=== PATIENT | male | born 1935 | race Caucasian/White ===

== ENCOUNTER → 2017-02-12 | Outpatient (CLI) | payer OTHER ==
[~2017-02-12] MED LIST: ADULT LOW DOSE81 MG PO; APAP650 PO; ATORVASTATIN CA10 MG PO; COUMADIN 2 MG TA2 M1 PO; COUMADIN6 MG PO; FISH OIL 1,001000 M1 PO; GLUCOPHAGE XR750 MG PO; HYDROCODON-ACE1 EAC7 PO; LISINOPRIL5 MG PO; NITROGLYCERIN0.4 MG SL; PENICILLIN VK500 MG PO; PLAVIX 75 MG TA75 MG PO; PRILOSEC 10MG C10 MG PO; PROTONIX40 M2 PO; SAW PALMETTO C1 EACH PO; SIMVASTATIN40 MG PO; ZOCOR 20 MG TAB20 M1 PO
== END ==
LOC: MRI 06:49
DX: M16.11 Unilateral primary osteoarthritis, right hip (principal); M48.06 Spinal stenosis, lumbar region

== ENCOUNTER 2018-10-20 13:12 | Inpatient (IN) | payer OTHER ==
[~2018-10-20] VITALS: Ht 182.9 cm; Wt 112.3 kg
[2018-10-20 13:15] VITALS: BP 167/98
[2018-10-20 13:51] LABS: HEMATOCRIT 37.9 % (42.0-52.0); HEMOGLOBIN 12.8 gm/dL (14.0-18.0); MCH 33.1 pg (26.0-34.0); MCHC 33.6 g/dL (28.0-37.0); MCV 98.4 fL (80.0-100.0); RBC 3.85 mil/uL (4.50-6.00); RDW 14.7 % (10.5-14.5); WBC 9.3 thou/uL (4.0-11.0)
[2018-10-20] MEDS ORDERED: ASPIRIN325 PO (13:54)
[2018-10-20 14:04] LABS: APTT 40.8 Seconds (24.5-32.8); PROTIME 42.7 Seconds (9.3-11.4)
[2018-10-20 14:06] LABS: INR 4.1
[2018-10-20 14:07] LABS: CALCIUM 9.4 mg/dL (8.5-10.1); POTASSIUM 4.6 mmol/L (3.5-5.1)
[2018-10-20 14:13] LABS: TOTAL BILIRUBIN 0.5 mg/dL (<0.1-1.0); TOTAL PROTEIN 7.3 g/dL (6.4-8.2)
[2018-10-20 14:17] LABS: ABSOLUTE NEUTROPHILS 8.1 thou/uL (1.4-8.2)
[2018-10-20 14:18] LABS: LARGE PLATELETS FEW; PLATELET COUNT 152 thou/uL (150-400)
[2018-10-20] MEDS ORDERED: LISINOPRIL2.5 MG PO (15:18)
[2018-10-20 15:49] LABS: URINE BILIRUBIN NEGATIVE (Negative); URINE BLOOD NEGATIVE (Negative); URINE CLARITY CLEAR; URINE COLOR YELLOW; URINE GLUCOSE-RANDOM* NEGATIVE (Negative); URINE KETONES NEGATIVE (Negative); URINE LEUKOCYTES NEGATIVE (Negative); URINE NITRITE NEGATIVE (Negative); URINE PROTEIN (DIPSTICK) NEGATIVE (Negative); URINE UROBILINOGEN 0.2 E.U./dl (0.2-1.0)
[2018-10-20 15:57] LABS: AMP/METHAMP Negative (Negative); BARBITURATES Negative (Negative); BENZODIAZEPINES Negative (Negative); COCAINE Negative (Negative); METHADONE Negative (Negative); OPIATES Negative (Negative); PCP Negative (Negative)
[2018-10-20 17:41] VITALS: BP 144/78; BP 148/72; BP 152/78
[2018-10-20 17:47] VITALS: BP 166/89
[2018-10-20 19:08] VITALS: BP 154/77
[2018-10-20 19:16] VITALS: BP 152/83
[2018-10-21] VITALS (8 sets, daily range): BP systolic 125–163; BP diastolic 58–104
--- NOTE | 2018-10-21 04:11 | NUR ---
ASSESSMENT: PT REMAIN ALERT AND ORIENT TIMES FOUR. VSS, AFEBRILE. C/O BACK PAIN, PRN PAIN MEDICATION GIVEN. PT IS RESTING IN BED, MOELLER PATENT. NO BM THUS FAR. CONSULT FOR Skye DEVRIES PENDING. SLOW PROGRESS TOWARDS DC GOALS, WILL CONTINUE TO MONITOR.
--- NOTE | 2018-10-21 04:27 | NUR ---
NOTEWORTHY: PT STATE THAT HE SOMETIMES "BLACKS OUT" AFTER FEELING DIZZY. HE THINKS THAT HE COULD HAVE HAD A "DIZZY SPELL", FELL AND HURT HIS BACK.
[2018-10-21 05:08] LABS: HEMATOCRIT 33.7 % (42.0-52.0); HEMOGLOBIN 11.2 gm/dL (14.0-18.0); MCH 32.9 pg (26.0-34.0); MCHC 33.4 g/dL (28.0-37.0); MCV 98.5 fL (80.0-100.0); RBC 3.42 mil/uL (4.50-6.00); RDW 14.7 % (10.5-14.5)
[2018-10-21 05:22] LABS: INR 3.6; PROTIME 37.2 Seconds (9.3-11.4)
[2018-10-21 05:25] LABS: CALCIUM 8.5 mg/dL (8.5-10.1); CREATININE 0.9 mg/dL (0.7-1.3); MAGNESIUM 1.8 mg/dL (1.8-2.4); POTASSIUM 3.9 mmol/L (3.5-5.1)
--- NOTE | 2018-10-21 09:26 | NUR ---
ASSESMENT COMPLETED. VSS. A/O. PAIN MANAGED BY MEDS ORDERED. NO NOTED SOA. NO NV. FOELY TO DD. PT VERBALIZED HAVING "DIZZING SPELLS" AND "BLACKING OUT" PT STATING IT'S PROBABLY THE REASON HE FELL. DR. NGUYEN NOTIFIED. ORDERS TO TRANSFER TO [facility]. PT RESTING IN BED AT THIS TIME. NO CONCERNS VOICED. WILL CONT. TO MONITOR.
--- NOTE | 2018-10-21 10:39 | NUR ---
PT TRANSFERRED TO 4W 454 IN STABEL CONDITION. SON AT BEDSIDE.
--- NOTE | 2018-10-21 19:16 | NUR ---
ASSUMED CARE OF PT THIS AFTERNOON. PT STABLE THROUGHOUT SHIFT, WENT FOR MRI AND TOLERATED WELL. C/O PAIN, TREATED WITH MEDICATION. FAMILY AT BEDSIDE. PT RESTING COMFORTABLY.
--- NOTE | 2018-10-22 03:07 | NUR ---
PT SLEPT MOST OF THE NIGHT PT NPO SINCE MIDNIGHT PT DID NOT COMPLAIN OF ANY PAIN NO ISSUES OVERNIGHT.
[2018-10-22 04:47] VITALS: BP 147/87
[2018-10-22 05:20] LABS: HEMATOCRIT 33.2 % (42.0-52.0); HEMOGLOBIN 11.2 gm/dL (14.0-18.0); MCH 33.5 pg (26.0-34.0); MCHC 33.9 g/dL (28.0-37.0); MCV 98.7 fL (80.0-100.0); RBC 3.36 mil/uL (4.50-6.00); RDW 14.5 % (10.5-14.5); WBC 6.8 thou/uL (4.0-11.0)
[2018-10-22 05:26] LABS: PROTIME 18.5 Seconds (9.3-11.4)
[2018-10-22 05:36] LABS: INR 1.8
[2018-10-22 08:07] VITALS: BP 130/80; BP 150/97; BP 153/97
[2018-10-22 10:51] LABS: INR 1.6; PROTIME 16.5 Seconds (9.3-11.4)
--- NOTE | 2018-10-22 13:01 | NUR ---
TOWARDS POC PT A/O X4, VSS, AFEBRILE. NO NV. 1 UNIT FFP GIVEN FOR PRE SURGERY INTERVENTION. INR 1.6. PT REMAINED NPO. WILL FF UP FOR SURGERY SCHEDULE. WILL CONTINUE TO MONITOR.
--- NOTE | 2018-10-22 14:04 | NUR ---
PT ADMITTED RELATED TO T12 COMPRESSION FX. CM REVIEWED CHART AND SPOKE WITH CARE TEAM. CM MET WITH PT AT BEDSIDE THIS DAY. PT IS A&O X4. MC ROLE INTRODUCED. PT INDICATED HE LIVES ALONE IN A HOUSE WITH 4 STEPS TO ENTER THROUGH THE FRONT AND 13 TO ENTER THROUGH THE BACK. PT INDICATED HE HAD USED A CANE AND A 4WW TO ASSIST WITH MOBILITY PROFESSIONAL HOUSING CONSULTANT. PT INDICATED HE HADN'T HAD HOME O2 PROFESSIONAL HOUSING CONSULTANT. PT INDICATED HE HAD USED [facility] IN THE PAST AND THAT HE WOULD LIKE TO USE THEM AGAIN UPON DC IF RECOMMENDED. PT INDICATED HE ISN'T CERTAIN WHAT HIS NEEDS WILL BE YET UPON DC. PT IS TO HAVE A KYPHOPLASTY THIS DAY. CM TO FOLLOW INDICATED WITH DC PLANNING.
[2018-10-22 15:00] VITALS: BP 175/98
[2018-10-22 20:12] VITALS: BP 143/74
--- NOTE | 2018-10-23 01:41 | NUR ---
PT SLEPT MOST OF THE NIGHT PT GIVEN TWO NORCO PILLS FOR PAIN PT USED CALL LIGHT EFFECTIVELY NO ISSUES OVERNIGHT.
[2018-10-23 03:19] VITALS: BP 140/86
[2018-10-23 07:13] VITALS: BP 117/66
[2018-10-23 15:10] VITALS: BP 127/67
--- NOTE | 2018-10-23 16:52 | NUR ---
ALERT X4, PAIN MANAGED WITH MEDICATIONS. VSS, ABLE TO REPOSITION SELF. 500CC FROM MOELLER. INDEPENDENT WITH MEALS. SURGERY SCHEDULED FOR THURSDAY. ROUNDED BY DR MENDEZ WITH ORDERS FOR MOM - NO BM AT THIS TIME. FALL PRECAUTION IN PLACE. CALLS APPROPRIATLEY.
[2018-10-23 19:45] VITALS: BP 173/91
[2018-10-24 03:32] VITALS: BP 146/67
--- NOTE | 2018-10-24 04:30 | NUR ---
Pt. rested quietly at intervals during the night when checked on during frequent rounds. He c/o back pain and was given po pain med (see emar) with relief. Bed alarm is on.
[2018-10-24 08:00] VITALS: BP 171/89
[2018-10-24 15:00] VITALS: BP 172/86
--- NOTE | 2018-10-24 16:21 | NUR ---
PT A&OX4, VSS, GENERALIZED PAIN AT AN 8 PER PT AND BEING MANAGED WITH NORCO. PT NPO AT MIDNIGHT, AWAITING KYPHOPLASTY THURSDAY MORNING. FALL PRECAUTIONS IN PLACE, WILL CONTINUE TO MONITOR.
[2018-10-24 20:26] VITALS: BP 151/86
[2018-10-25] VITALS (7 sets, daily range): BP systolic 124–179; BP diastolic 57–95
--- NOTE | 2018-10-25 07:33 | NUR ---
PATIENT IS ALERT BUT EASILY CONFUSED. PT WAS ABLE TO SLEEP PART OF THE SHIFT. 02 VIA NC AND MOELLER CATHETER CONTINUED. POSSIBLE SURGERY IN THE AM. PATIENT IS PROGRESSING TOWARDS DC GOALS.
[2018-10-25 09:41] LABS: HEMOGLOBIN 11.4 gm/dL (14.0-18.0); MCHC 33.7 g/dL (28.0-37.0); MCV 98.1 fL (80.0-100.0); RBC 3.46 mil/uL (4.50-6.00); RDW 14.1 % (10.5-14.5); WBC 5.3 thou/uL (4.0-11.0)
[2018-10-25 09:49] LABS: CALCIUM 8.4 mg/dL (8.5-10.1); CREATININE 0.6 mg/dL (0.7-1.3); POTASSIUM 4.1 mmol/L (3.5-5.1)
[2018-10-25 09:53] LABS: INR 1.2; PROTIME 12.5 Seconds (9.3-11.4)
--- NOTE | 2018-10-25 17:07 | NUR ---
PT UNDERWENT KYPHOPLAXTY TODAY. AWAITING PT OT EVALS TO SETERMINE DC NEEDS. CM TO FOLLOW INDICATED WITH DC PLANNING.
--- NOTE | 2018-10-25 17:46 | NUR ---
ASSUMED CARE 0700. KYPHOPLASTY THIS MORNING. PAIN MANAGED WITH MEDICATIONS, VSS, NO NEED TO TREAT BLOOD SUGARS, AFIB ON TELE. PT TO WORK WITH PATIENT TOMORROW. FALL PRECAUTIONS REMAIN IN PLACE. CALL LIGHT IN REACH.
[2018-10-26 05:20] VITALS: BP 153/100
[2018-10-26 07:12] VITALS: BP 151/75
--- NOTE | 2018-10-26 07:42 | NUR ---
PT IS AO X 2 THIS SHIFT. O2 VIA NC CONTINUED WITH CONTINUOUS PULSE OX. PT GETS COFUSED AT NIGHTTIME. POST OP SITE HAS INTACT DRESSING. NO OTHER QUESTIONS AND CONCERNS AT THIS TIME. PT IS PROGRESSIG TOWARDS DC GOALS.
[2018-10-26] MEDS ORDERED: BACLOFEN 10MG T10 MG PO (13:18)
[2018-10-26] MEDS ORDERED: ACETAMINOPHEN325 M1 PO (13:18)
[2018-10-26] MEDS ORDERED: HYDROCODON-ACE1 EAC7 PO (13:18)
[2018-10-26] MEDS ORDERED: B-12500 MCG PO (13:18)
[2018-10-26] MEDS ORDERED: MOBIC7.5 M1 PO (13:18)
[2018-10-26] MEDS ORDERED: COLACE 100 MG100 MG PO (13:18)
--- NOTE | 2018-10-26 14:53 | NUR ---
CM MET WITH PT AND SON LUDIVINA AT BEDSIDE THIS DAY. CM INDICATED THAT CARE TEAM WERE RECOMMENDING POST ACUTE CARE STAY. CM PROVIDED THEM SNF LIST TO REVIEW. CM FOLLOWING REGARDING DC PLANNING.
[2018-10-26 15:18] VITALS: BP 145/67
--- NOTE | 2018-10-26 16:53 | NUR ---
ASSUMED CARE 0700. ALERT X3, DENIES PAIN. VSS, UP WITH PT/OT GAIT BELT AND WALKER TO RECLYNER THIS MORNING. AT THIS TIME PT IS IN BED. CONTINUES ON 02 AND CONTINIOUS PULSE OX MONITOR. PLANS TO DC TO REHAB ONCE INSURANCE IS AUTHORIZED. FULL FALL PRECAUTIONS IN PLACE. CALLS FOR ASSISTANCE. SUNNI CORTES, LARGE BM TODAY
[2018-10-26 19:23] VITALS: BP 166/89
[2018-10-26 23:42] VITALS: BP 156/78
[2018-10-27 03:01] VITALS: BP 178/86
[2018-10-27 07:15] VITALS: BP 146/68
--- NOTE | 2018-10-27 08:20 | NUR ---
PT A0X3 THIID SHIFT. MOELLER WAS DISCONTINUED AND PT VOIDED. PT SLEPT PART OF THE NIGHT. PT HAD NO QUESTIONS OR CONCERNS. WILL CONTIMUE TO MONITOR. PT PROGRESSING TOWARDS DC GOALS.
--- NOTE | 2018-10-27 12:15 | NUR ---
DISCHARGE PLANNING. PATIENT IS READY FOR DISCHARGE TODAY. POST ACUTE CARE RECOMMENDED. REFERRAL FAXED TO [facility] PER PATIENT REQUEST FOR POST ACUTE CARE NEEDS. CALL PLACED TO KAREN TO NOTIFY OF REFERRAL AND PATIENTS DISCHARGE NEEDS. KAREN AWARE THAT PATIENT IS ALSO INTERESTED IN [facility]. KAREN TO REVIEW CLINICALS AND NOTIFY OF ACCEPTANCE PRIOR TO SUBMITTING FOR INSURANCE AUTH. REFERRAL FAXED TO [facility], PER PATIENT REQUEST FOR POST ACUTE CARE NEEDS. CALL PLACED TO DEBORAH TO NOTIFY. LEILANI VILLANUEVA, [facility]IA[facility], TO MEET WITH PATIENT TODAY AT BEDSIDE. DEBORAH AWARE THAT PATIENT IS ALSO INTERESTED IN [facility] AND WILL REVIEW PATIENT CLINICAL INFORMATION AND NOTIFY CM PRIOR TO SUBMITTING FOR INSURANCE AUTH. UNIT CM/SW AWARE. FOLLOWING TO ASSIST.
--- NOTE | 2018-10-27 14:21 | NUR ---
CM FOLLOWED UP WITH PT'S SON LUDIVINA THIS AM AND HE ASKED THAT REFERRALS BE SENT TO [facility] AND [facility] FOR REVIEW FOR POSSIBLE ADMISSION. [facility] INDICATED THEY WOULD BE ABLE TO ACCEPT PT MEDICALLY AND THAT THEY WOULD SUBMIT FOR AUTH. MAGGIE TO FOLLOW INDICATED WITH DC PLANNING.
[2018-10-27 15:30] VITALS: BP 140/77
[2018-10-27 19:20] VITALS: BP 151/62
--- NOTE | 2018-10-27 19:41 | NUR ---
ASSUMED CARE 0700. PROGRESSING TOWARDS GOALS. AWAITING PLACEMENT/INSURANCE AUTHORIZATION. LIKELY TO DC TOMORROW.REMAINS IN FALL PRECATION.
--- NOTE | 2018-10-28 05:13 | NUR ---
PT AOX4 THIS SHIFT WHICH IS AN IMPROVEMENT FROM PREVIOUS NIGHT SHIFTS. NO S/S OF ACUTE DISTRESS THIS SHIFT. PT CALLS FOR HELP NEEDED. NO OTHER QUESTIONS OR CONCERNS AT THIS TIME. WILL CONTINUE TO MONITOR.
[2018-10-28 05:27] VITALS: BP 136/70
[2018-10-28 07:35] VITALS: BP 141/84
--- NOTE | 2018-10-28 09:25 | NUR ---
Nutrition: Pt admitted for T12 compression fx s/p vertebroplasty. Seen for LOS. Hx of DM. Pt states appetite is not good this morning with nausea. Intake 07/02-06/30. No new wt since admission. Admission wt 247 lbs, UBW 230 lbs. Discharge orders on 10/26, awaiting insurance authorization for SNF. Per nsg notes, will likely D/C today. Sarcopenia noted, however director of outreach strength WNL. BG controlled. Will reassess if D/C not within next few days.
[2018-10-28 09:34] VITALS: BP 141/84
--- NOTE | 2018-10-28 09:50 | NUR ---
PT A&OX1, AMBULATES WITH STAND BY ASSIST AND 3 WHEEL WALKER. PT IS CONT. OF BOWEL AND BLADDER. PT IS VERY PLEASANT AND TEARFULL AT TIMES. FORGETS OWN LIMITATIONS, WILL CONT TO MONITOR SAFETY CHAIR AND BED ALARMS ON AT ALL TIMES.
--- NOTE | 2018-10-28 10:06 | NUR ---
PT A&OX4, IV INTACT IN L HAND, AMBULATES WITH ASSIST AND WALKER. DENIES ANY PAIN AT THIS TIME. WILL CONT POC.
--- NOTE | 2018-10-28 16:17 | NUR ---
DC ORDERS RECEIVED. IV REMOVED FROM L HAND, REPORT CALLED TO DEVON AT [facility]. W/C SHELLIE PICKED UP PT TO TRANSFER.
== END 2018-10-28 16:05 | DRG 516 ==
LOC: ER 13:12 → 4W 15:08 → 4E 15:08 → EROBS 15:08 → 4E 18:54 → 4W 10-21 10:34
PROVIDERS: Emergency Medicine; Nurse Practitioner Family; ADMIT Internal Medicine
PROC: 0PS43ZZ Reposition Thoracic Vertebra, Percutaneous Approach (ICD-10-PCS; principal; 2018-10-25)
PROC: 0PU43JZ Supplement Thoracic Vertebra with Synthetic Substitute, Percutaneous Approach (ICD-10-PCS; principal; 2018-10-25)
DX: S22.080A Wedge compression fracture of T11-T12 vertebra, initial encounter for closed fracture (principal); D68.9 Coagulation defect, unspecified; M54.9 Dorsalgia, unspecified; I10 Essential (primary) hypertension; I25.10 Atherosclerotic heart disease of native coronary artery without angina pectoris; E11.9 Type 2 diabetes mellitus without complications; M81.0 Age-related osteoporosis without current pathological fracture; Z96.652 Presence of left artificial knee joint; E53.8 Deficiency of other specified B group vitamins; Z60.2 Problems related to living alone; I48.2 Chronic atrial fibrillation; K59.03 Drug induced constipation; T50.905A Adverse effect of unspecified drugs, medicaments and biological substances, initial encounter; Y92.9 Unspecified place or not applicable; Z91.040 Latex allergy status; Z95.5 Presence of coronary angioplasty implant and graft; Z82.2 Family history of deafness and hearing loss; Z82.49 Family history of ischemic heart disease and other diseases of the circulatory system; Z90.49 Acquired absence of other specified parts of digestive tract; Z79.01 Long term (current) use of anticoagulants; W18.39XA Other fall on same level, initial encounter; Y93.89 Activity, other specified; Y92.89 Other specified places as the place of occurrence of the external cause; Y99.8 Other external cause status
CPT/HCPCS: 10040; 10045; 10084

== ENCOUNTER 2021-05-27 11:39 | Inpatient (IN) | payer OTHER ==
[~2021-05-27] VITALS: Ht 182.9 cm; Wt 91.9 kg
[~2021-05-27 11:39] MED LIST changes: +ACETAMINOPHEN325 M1 PO; +ASPIRIN325 PO; +B-12500 MCG PO; +BACLOFEN 10MG T10 MG PO; +COLACE 100 MG100 MG PO; +LISINOPRIL2.5 MG PO; +MOBIC7.5 M1 PO
[2021-05-27 11:43] VITALS: BP 172/89
[2021-05-27] MEDS ORDERED: PROTONIX40 M4 PO (11:52)
[2021-05-27] MEDS ORDERED: XARELTO20 MG PO (11:55)
[2021-05-27] MEDS ORDERED: NITROSTAT0.4 M1 SUBLING (11:56)
[2021-05-27 14:31] LABS: ABSOLUTE NEUTROPHILS 4.6 thou/uL (1.4-8.2); BASOPHILS 1.2 % (0.0-2.0); EOSINOPHILS 2.3 % (0.0-3.0); HEMATOCRIT 38.9 % (42.0-52.0); HEMOGLOBIN 12.8 gm/dL (14.0-18.0); LYMPHOCYTES 16.8 % (24.0-44.0); MCH 32.1 pg (26.0-34.0); MCV 97.2 fL (80.0-100.0); MONOCYTES 9.5 % (1.0-8.0); PLATELET COUNT 190 thou/uL (150-400); POLYS 70.2 % (36.0-66.0); RDW 14.9 % (10.5-14.5); WBC 6.6 thou/uL (4.0-11.0)
--- NOTE | 2021-05-27 14:42 | NUR ---
PT LEAVES DEPT FOR RADIOLOGY.
[2021-05-27 14:44] LABS: APTT 41.4 Seconds (24.5-32.8); INR 1.51; PROTIME 16.1 Seconds (10.5-12.1)
[2021-05-27 14:46] LABS: CALCIUM 9.2 mg/dL (8.5-10.1); POTASSIUM 4.2 mmol/L (3.5-5.1)
[2021-05-27 14:55] LABS: ALBUMIN 3.3 g/dL (3.4-5.0); MAGNESIUM 2.1 mg/dL (1.8-2.4); TOTAL BILIRUBIN 0.7 mg/dL (0.2-1.0); TOTAL PROTEIN 7.7 g/dL (6.4-8.2)
[2021-05-27 23:10] VITALS: BP 152/80
[2021-05-27 23:26] VITALS: BP 150/79
--- NOTE | 2021-05-28 01:04 | NUR ---
PT ARRIVED TO FROM ED AT APPROXIMATELY 2315, TRANSPORTED VIA CART BY ED STAFF. PT IS A&OX4 AND ABLE TO COMMUNICATE WANTS AND NEEDS TO STAFF. ADMISSION ASSESSMENTS COMPLETED PER PROTOCOL. PT IS ON ROOM AIR, VSS STABLE UPON ARRIVAL TO . SILICONE CATHETER IN PLACE TO DD DUE TO NOTED ALLERGY TO LATEX. PT IS PLEASANT AND COOPERATIVE. ADMITTED TO [facility]/TELE. TELE MONIOR IN PLACE, A-FIB NOTED, RATE 60'S-70'S. WILL CONTINUE TO OBSERVE FOR CHANGES.
[2021-05-28 05:29] VITALS: BP 123/52
[2021-05-28 05:53] LABS: HEMATOCRIT 34.8 % (42.0-52.0); HEMOGLOBIN 11.5 gm/dL (14.0-18.0); MCH 32.2 pg (26.0-34.0); MCV 97.5 fL (80.0-100.0); RBC 3.57 mil/uL (4.50-6.00); RDW 15.2 % (10.5-14.5); WBC 5.1 thou/uL (4.0-11.0)
[2021-05-28 06:06] LABS: CALCIUM 8.7 mg/dL (8.5-10.1); CREATININE 0.9 mg/dL (0.7-1.3); POTASSIUM 4.3 mmol/L (3.5-5.1)
--- NOTE | 2021-05-28 07:17 | EKG ---
[address] [address] ELECTROCARDIOGRAM REPORT Name: KENDRICKMARGARITO V Room #: 447-P ADM IN M.R.#: [id number] Admission: 05/27/21 Attend Phys: Nnamdi Crespo MD Discharge: Date of : 31 Report #: [id number] [facility] ED Test Date: 2021-05-27 Test Time: 14:56:33 Pat Name: MARGARITO MARKS Department: Room: [facility] Gender: M Cornice Upholsterer: DG : 1935 Requested By: Reshma Penny Order Number: [id number] : Solomon Pham Measurements Intervals [place] Rate: 81 P: OR: QRS: 2 QRSD: 96 T: 27 QT: 409 QTc: 475 Interpretive Statements Atrial fibrillation Compared to ECG 01/15/2011 07:42:15 Myocardial infarct finding no longer present Electronically Signed On 05-28-2021 7:17:09 MILK PROCESSING WORKER by Solomon Pham [email or web address] <ELECTRONICALLY SIGNED> By: Solomon Pham MD, [facility] 05/28/21 0717 1456 1456 Solomon Pham MD, FACC /EPI
[2021-05-28 07:46] VITALS: BP 134/73
[2021-05-28 16:00] VITALS: BP 124/80
--- NOTE | 2021-05-28 16:46 | NUR ---
85-year-old male, came to the ED with complaints of difficulty walking, low back pain, neck pain, and had recently experienced an unwitnessed fall approximately 3 days ago. He reports that upon standing up quickly he turned at the same time, lost his balance, and fell. He reports that he did hit the counter as he fell .history of atrial fibrillation, diabetes type 2, hypertension, T12 compression fracture, osteoporosis, falls, and coronary artery disease. On Xarelto for his atrial fibrillation. MAGGIE visited with Abel at bedside before breakfast. A & o x 3 with some forgetfulness and he can make his needs know. Intro to maggie and romulo. HH and rehab. He reported, been to [facility] rehab in the past and had [facility] in the past. Has a cane. His daughter in law and him have a system for medication manage at home and he will not use pill box. tries to drive. Had falls at home. Has 3 sons. Lost his and a daughter not that long ago and still grieving per Abel. Active listening and support during visit. Education on skilled rehab and he was agreeable to have referral sent to [facility]. Maggie spoke with his son jaxon via phone call # [phone] and agrees with rehab, someone should ask him what he thinks he should get out of rehab. Will cont. following as needed, will need insurance auth for skilled rehab.
--- NOTE | 2021-05-28 17:48 | NUR ---
A/O X4. DENIES PAIN. ON BED REST. WILL KEEP MONITOR
[2021-05-28 20:53] VITALS: BP 141/70
--- NOTE | 2021-05-29 04:20 | NUR ---
PT IS A/O X4 AND IS ON BEDREST. ROOM AIR. VSS AFEBRILE. DENIES C/O PAIN OR DISCOMFORT. CALL LIGHT IS WITHIN REACH. FALL PRECAUTIONS IMPLEMENTED.
[2021-05-29 07:47] VITALS: BP 137/70
[2021-05-29 11:38] VITALS: BP 133/68
--- NOTE | 2021-05-29 12:28 | NUR ---
A/O X 4. ROOM AIR. BEDREST. LEFT AC IV SALINE LOCKED. AFIB ON TELE. MOELLER ABRAN URINE. LEFT FACE BRUISE AND SWOLLEN. BACK PAIN. PRN PAIN MED GIVEN. LIDOCAINE PATCH ON BACK
--- NOTE | 2021-05-29 14:02 | 2DMMODE ---
[facility] [place] [address] 2 D/M-MODE ECHOCARDIOGRAM Name: MARGARITO MARKS V Room #: 447-P ADM IN M.R.#: [id number] Admission: 05/27/21 Attend Phys: Nnamdi Crespo MD Discharge: Date of : 31 Report #: [id number] THIS REPORT FOR: cc: José Miguel Rogers MD, Eric K. MD Park, Jin S. MD ~ APPROVED REPORT Study performed: 05/29/2021 09:56:31 EXAM: Comprehensive 2D, Doppler, and color-flow Echocardiogram Patient Location: Bedside Room #: [facility] Status: routine BSA: 2.10 HR: 55 bpm BP: 137/70 mmHg Rhythm: Atrial Fibrillation Other Information Study Quality: Technically Difficult Technically limited study due to Fractured back, inability to position patient. Indications Diabetes Atrial Fibrillation CAD Syncope 2D Dimensions IVSd: 10.03 (7-11mm) LVOT Diam: 21.58 (18-24mm) LVDd: 52.80 mm PWd: 10.22 (7-11mm) Ascending Ao: 36.99 (22-36mm) LVDs: 36.48 (25-40mm) Left Atrium: 45.71 (27-40mm) Aortic Root: 32.05 mm IVC: 25.00 mm Aortic Valve AoV Peak Yimi.: 1.30 m/s AO Peak Gr.: 6.80 mmHg LVOT Max P.15 mmHg LVOT Max V: 0.54 m/s TAMIKO Vmax: 1.50 cm2 [facility] [address] [place] [address] 2 D/M-MODE ECHOCARDIOGRAM Name: MARGARITO MARKS V Room #: 447[facility] IN ..#: [id number] Admission: 05/27/21 Attend Phys: Jose Angel Gutierres Discharge: Date of : 31 Report #: [id number] Pulmonary Valve PV Peak Yimi.: 0.95 m/s PV Peak Gr.: 3.62 mmHg Tricuspid Valve TR Peak Yimi.: 3.13 m/s TR Peak Gr.: 39.16 mmHg PA Pressure: 49.00 mmHg Left Ventricle The left ventricle is normal size. There is normal left ventricular wall thickness. The left ventricular systolic function is grossly normal. LVEF is 50-55%. This study is not technically sufficient to allow evaluation of the LV diastolic function due to atrial fibrillation. Right Ventricle The right ventricle is normal size. The right ventricular systolic function is normal. Atria Left atrium is dilated. Right atrium is dilated. Aortic Valve The aortic valve is normal in structure. The Aortic valve is sclerotic. No aortic regurgitation is present. There is no aortic valvular stenosis. Mitral Valve The mitral valve is normal in structure. There is mitral annular calcification. Mild mitral regurgitation. No evidence of mitral valve stenosis. Tricuspid Valve The tricuspid valve is normal in structure. There is mild tricuspid regurgitation. Estimated PAP 46 mmHg. There is moderate pulmonary hypertension. Pulmonic Valve The pulmonary valve is normal in structure. There is no pulmonic valvular regurgitation. Great Vessels The aortic root is normal in size. IVC is dilated and collapses <50% with inspiration. Pericardium [facility] [address] [place] [address] 2 D/M-MODE ECHOCARDIOGRAM Name: MARGARITO MARKS Tammy Room #: 447-P ADM IN [facility].#: [id number] Admission: 05/27/21 Attend Phys: Jose Angel Gutierres Discharge: Date of : 31 Report #: [id number] There is no pericardial effusion. <Conclusion> The left ventricle is normal size. There is normal left ventricular wall thickness. The left ventricular systolic function is grossly normal. The right ventricle is normal size. Left atrium is dilated. The Aortic valve is sclerotic. Mild mitral regurgitation. There is mild tricuspid regurgitation. Estimated PAP 46 mmHg. <ELECTRONICALLY SIGNED> By: Madan Coronel MD 05/29/211401 01 01 Madan Coronel MD /INF
--- NOTE | 2021-05-29 16:18 | NUR ---
Khyphoplasty planned for Thursday. PT/OT evals pending post procedure. Referral faxed and called to [facility]. They can likely accept but will need therapy evals to submit for ins auth. Pt's family is very supportive and have also offered for him to come to their homes or to have some private duty help if he is able to go home at dc vs SNF. Will follow.
[2021-05-29 17:04] VITALS: BP 150/70
[2021-05-29 20:53] VITALS: BP 139/56
--- NOTE | 2021-05-30 03:50 | NUR ---
PT IS A/O X4 AND IS ON BEDREST. PLEASANT AND COOPERATIVE. CALLS OUT APPROPRIATELY FOR ASSISTANCE. ROOM AIR, AFIB ON THE MONITOR. C/O BACK PAIN. PRN PAIN MEDICATION GIVEN DIRECTED. FALL PRECUATIONS IN PLACE, CALL LIGHT IS WITHIN REACH. WILL CONTINUE TO MONITOR.
[2021-05-30 07:23] VITALS: BP 130/75
--- NOTE | 2021-05-30 13:45 | NUR ---
A/O X 4. ROOM AIR. BEDREST. BACK FX PAIN HAS BEEN 07/08. NO PAIN MEDICATION REQUESTED. LEFT FACE BRUISE SWOLLEN. NPO AFTER MIDNIGHT FOR KYPHO IN AM. LIDOCAINE PATCH ON BACK
[2021-05-30 16:30] VITALS: BP 142/77
[2021-05-30 19:34] VITALS: BP 201/88
[2021-05-30 20:10] VITALS: BP 160/79
--- NOTE | 2021-05-30 20:48 | NUR ---
Bedside completed at the start of shift. Pt seemed drowsy. Amado ppain. Therefater pt called with c/o dizziness and feeling hot.BP taken and was elevated at 210/88.Blood sugar@156. Afib controlled on the monitor. Daughter by the bedside and epresses that patient is off. Pt able to answer orientation questions but is alittle slow. Placed on 02 for comfort. Noted to be afebrile. Good state farm agent team member strength to brandon arms and legs. Alert to self and place. Said it is April.Pt joking some. Following directions. Therafter c/o left sided pain and chest. Stat EKG completed per orders-aFIB controlled.Stat troponin. C/o of a 2/10 headache, will give tylenol.Bedside stroke assessment completed again at about 2039 and is negative.
[2021-05-30 22:13] LABS: CALCIUM 8.9 mg/dL (8.5-10.1); CREATININE 0.7 mg/dL (0.7-1.3)
[2021-05-30 22:22] LABS: POTASSIUM 4.7 mmol/L (3.5-5.1)
[2021-05-31] VITALS (12 sets, daily range): BP systolic 133–178; BP diastolic 72–103
--- NOTE | 2021-05-31 00:03 | NUR ---
pt had difficulty swallowing meds earlier. He is NPO now for IR procedure tomorrow. Speech/Swallow eval ordered for tomorrow.PT observed calm and sleeping. Appears to be in no distress.Will continue with hourly rounding.
[2021-05-31 02:36] LABS: BE(vivo) 0.7 mmol/L (-2 to +3); HCO3 23.7 mmol/L (22.0-26.0); PO2 72.9 mmHg (80.0-100.0); pH 7.474 (7.360-7.450); sO2 95.7 % (92.0-98.0)
[2021-05-31 02:41] LABS: ABSOLUTE NEUTROPHILS 5.5 thou/uL (1.4-8.2); BASOPHILS 0.4 % (0.0-2.0); HEMATOCRIT 37.8 % (42.0-52.0); HEMOGLOBIN 12.6 gm/dL (14.0-18.0); LYMPHOCYTES 10.2 % (24.0-44.0); MCH 32.2 pg (26.0-34.0); MCHC 33.5 g/dL (28.0-37.0); MCV 96.3 fL (80.0-100.0); MONOCYTES 8.4 % (1.0-8.0); PLATELET COUNT 188 thou/uL (150-400); RBC 3.92 mil/uL (4.50-6.00); RDW 14.6 % (10.5-14.5); WBC 6.8 thou/uL (4.0-11.0)
[2021-05-31 02:48] LABS: CALCIUM 8.8 mg/dL (8.5-10.1); CREATININE 0.9 mg/dL (0.7-1.3); POTASSIUM 4.5 mmol/L (3.5-5.1)
[2021-05-31 02:53] LABS: APTT 27.9 Seconds (24.5-32.8); INR 1.03; PROTIME 11.2 Seconds (10.5-12.1)
--- NOTE | 2021-05-31 04:08 | NUR ---
BREAKFAST AND ROOM ATTENDANT called for diaphoresis and decreased LOC. See angle bender flowsheet.
--- NOTE | 2021-05-31 04:30 | NUR ---
called jaden Hernandez [phone] with status update.Left VM to call back.
--- NOTE | 2021-05-31 06:05 | NUR ---
RECEIVED THIS PATIENT FROM AROUND 0340H.PATIENT IS LETHARGIC AND DROWSY.ASSESSMENT DONE CHARTED.VITALS MONITORED.TELE CONSULT WITH NEUROLOGY WAS DONE WITH THE FARM EQUIPMENT TECHNICIAN.NIH MONITORING DONE.ALL NEEDS ATTENDED.KEPT NPO ORDERED.TO CONTINOUSLY MONITORED.
--- NOTE | 2021-05-31 07:40 | NUR ---
COMPLETED MRI SCREENING WITH LYNNE MARKS. FAXED SCREENING TO MRI.
--- NOTE | 2021-05-31 07:50 | EKG ---
[address] [place] [address] ELECTROCARDIOGRAM REPORT Name: MARGARITO MARKS Tammy Room #: 202- ADM IN M.R.#: [id number] Admission: 05/27/21 Attend Phys: Nnamdi Crespo MD Discharge: Date of : 33 Report #: [id number] [facility] Test Date: 2021-05-30 Test Time: 20:33:28 Pat Name: MARGARITO MARKS Department: Room: 202 Gender: M Custom Harvester: ANYA SANTIAGO : 1935 Requested By: Linda Jeff Order Number: [id number] MD: Zeeshan Dawson Measurements Intervals [place] Rate: 89 P: VT: QRS: -6 QRSD: 89 T: 76 QT: 381 QTc: 464 Interpretive Statements Atrial fibrillation Compared to ECG 05/27/2021 14:56:33 No significant changes Electronically Signed On 05-31-2021 7:50:21 PACKING AND STAMPING MACHINE OPERATOR by Zeeshan Dawson [email or web address] <ELECTRONICALLY SIGNED> By: Zeeshan Dawson MD, LOCATED WITHIN [facility] 05/31/21 0750 32 32 Zeeshan Dawson MD, FACC /EPI
--- NOTE | 2021-05-31 07:52 | EKG ---
[address] [address] [facility] [place] [address] ELECTROCARDIOGRAM REPORT Name: MARGARITO MARKS Tammy Room #: 202- ADM IN M.R.#: [id number] Admission: 05/27/21 Attend Phys: Nnamdi Crespo MD Discharge: Date of : 33 Report #: [id number] [facility] Test Date: 2021-05-31 Test Time: 02:35:01 Pat Name: MARGARITO MARKS Department: Room: 202 Gender: M Oil And Gas Well Treatment Operator: ANYA SANTIAGO : 1935 Requested By: Linda Jeff Order Number: [id number] MD: Zeeshan Dawson Measurements Intervals [place] Rate: 80 P: RI: QRS: -7 QRSD: 95 T: 17 QT: 412 QTc: 476 Interpretive Statements Atrial fibrillation Poor R wave progression Compared to ECG 05/30/2021 20:33:28 No significant changes Electronically Signed On 05-31-2021 7:51:56 AUTO COLLISION REPAIR INSTRUCTOR by Zeeshan Dawson [email or web address] <ELECTRONICALLY SIGNED> By: Zeeshan Dawson MD, [facility] 05/31/21 0751 0235 0235 Zeeshan Dawson MD, FACC /EPI
--- NOTE | 2021-05-31 13:08 | NUR ---
Pt. had change in status after MRI-ADMISSIONS OFFICER activated- see flowsheet
--- NOTE | 2021-05-31 16:42 | NUR ---
patient had rapid response now stroke. Phys sp with family and now comfort measures.
--- NOTE | 2021-06-01 04:25 | NUR ---
RECEIVED PATIENT AT 1900H.ASSESSMENT DONE CHARTED.MEDS PER AUG.ON COMFORT CARE.PAIN MEDS GIVEN PRN.ALL NEEDS ATTENDED.TO CONTINOUSLY MONITOR.
[2021-06-01 05:23] VITALS: BP 158/92
[2021-06-01 07:08] LABS: GLYCOHEMOGLOBIN (HGB A1C) 5.9 % (4.8-5.6)
[2021-06-01 07:30] VITALS: BP 154/89
--- NOTE | 2021-06-01 11:18 | HC ---
[facility] [place] [address] CONSULTATION Name: MARGARITO MARKS V Room #: 202-P [facility] IN M.R.#: [id number] Admission: 05/27/21 Attend Phys: Nnamdi Crespo MD Discharge: Date of : 31 Report #: [id number] THIS REPORT FOR: cc: José Miguel Rogers MD, Eric K. MD [place], Roxane S. DO ~ DATE OF SERVICE: 05/31/2021 NEUROLOGY CONSULT HISTORY OF PRESENT ILLNESS: The patient is an 85-year-old male, the Neurology Service was asked to see in consultation for possible stroke. The patient had participated with physical therapy yesterday; however, there was a change in the patient's mental status and a CT scan of the head was done, this CT scan shows possible left cerebellar infarct. 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 When I initially came to see the patient, he was not in his room. However, he came back from MRI and it was at that time that whoever was transporting the patient stated that he had vomited in the hallway and as the patient was being placed back into his bed, a rapid response was called. The patient was admitted to the hospital. He presented with his czhvdosj-cy-tyn with complaints of difficulty walking. Left hip pain, low back pain. Head and neck pain. The patient had an unwitnessed fall 3 days prior to the date of admission. He at that time told the Emergency Room physician that he stood up quickly, turned and then fell. He hit the counter on his way to the ground. It is unknown if there was loss of consciousness. The patient is on Xarelto for atrial fibrillation. Apparently, he has home health that checks on him a few times a week. He has refused to full-time care. Initially, the patient did not even want to come to the Emergency Room because he was able to stand and ambulate, but had limited movement because of pain in his left leg. During the patient's hospital course, he has been seen by several other providers. It has been noted in the chart that this is the patient's fourth fall this year. He typically uses a walker for ambulation. He has also had a 10-pound weight loss in the past year. He has trouble completing activities of daily living and the neighbor has been coming by to help. Apparently, the patient admitted to poor memory and loss of train of thoughts. The patient was also seen by Neurosurgery for an L1 compression fracture. No neurosurgical intervention was considered necessary, but a consult to Interventional Radiology to consider kyphoplasty was recommended. The patient has also been seen by Cardiology. He has a history of atrial fibrillation, coronary artery disease, hypertension, diabetes mellitus. It was the thought of Cardiology that his [address] [address] CONSULTATION Name: MARGARITO MARKS V Room #: 202-P [facility] IN M.R.#: [id number] Admission: 05/27/21 Attend Phys: Nnamdi Crespo MD Discharge: Date of : 31 Report #: [id number] falls were not syncopal in origin, but attributed to neuropathy, back pain and gait stability. The risk/benefit ratio of anticoagulation was "not in favor of continuing." Xarelto was put on hold. During the patient's hospital stay, he complained of back pain. His tlmergrt-ek-xqh was concerned about these blackout episodes. The patient was diagnosed with acute L1 and L3 compression fracture by MRI. Kyphoplasty was planned on Thursday because the patient needed time to be off the Xarelto. Apparently, his last dose was on Thursday. The carotid duplex also showed at least 70% stenosis of the right internal carotid artery. This was to be followed up as an outpatient. Again, the falls were addressed, but it was unclear that he had actually been losing consciousness. Telemetry revealed atrial fibrillation with controlled rates. The next 2 nights, 05/29/2021 and 05/30/2021, the patient had done well. He was walking with physical therapy, but reported being scared. The patient was evaluated by [facility] on 05/31/2021 at 4:02 a.m. and his NIHSS total score was 14. The plan was to resume anticoagulation 4 days post-stroke. Assuming no evidence of hemorrhage and no additional stroke seen on MRI of the brain, the onset of the stroke was felt to be the day prior to 05/31/2021, which would have been 05/30/2021. Until anticoagulation is resumed, daily aspirin was felt to be reasonable. Avoid hypotension. However, if delayed troponin warrants blood pressure management, reasonable to adhere to Cardiology goal in the situation. PAST MEDICAL HISTORY: Atrial fibrillation, hypertension, coronary artery disease, diabetes mellitus, compression fractures, L1 and L3, gastroesophageal reflux. PAST SURGICAL HISTORY: Appendectomy, cardiac stent, left total knee replacement. MEDICATIONS: In hospital include B12 1000 mcg daily, diclofenac gel 2 grams applied q.i.d., vitamin D 50,000 units weekly, tamsulosin 0.4 mg daily, lidocaine patch applied daily, pantoprazole 40 mg daily. ALLERGIES: STATINS AND LATEX. VITAL SIGNS: Temperature 36.7, pulse rate 94, respiratory rate 18, blood pressure 143/80. Bedside pulse oximetry 92% nasal cannula. LABORATORY DATA: Hematology: White blood cell count 6.8, hemoglobin 12.6, hematocrit 37.8, MCV 96.3, platelet count 188,000. Coagulation: INR 1.51. Blood gas, pH 7.474, pCO2 of 33, pO2 72.9, oxygen saturation 95.7%. Chemistry: Sodium 134, potassium 4.5, chloride 100, carbon dioxide 25, BUN 27, creatinine 0.9, GFR 80, glucose 192, calcium 8.8. Magnesium, dated 05/27/2021, 2.1. Liver functions, dated 05/27/2021, are normal. Troponin, dated 05/31/2021, 832. [address] [address] CONSULTATION Name: MARGARITO MARKS V Room #: 202-P [facility] IN ..#: [id number] Admission: 05/27/21 Attend Phys: Nnamdi Crespo MD Discharge: Date of : 31 Report #: [id number] ProBNP, dated 05/27/2021, 2370. B12, dated 05/28/2021, 182. Vitamin D, dated 05/28/2021, 22.3. IMAGING STUDIES: MRI of the head demonstrates extensive cerebellar diffusion abnormality, most prominent involving the superior aspect of the left cerebellar hemisphere and smaller amounts in the right superior cerebellum. Additionally, an old right cerebellar infarct is noted with encephalomalacia. Chest x-ray dated from 05/31/2021 demonstrates patchy bilateral pulmonary interstitial infiltrates suggesting pneumonitis. Carotid Doppler study demonstrates right internal carotid artery stenosis between 50-69%. 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 MRI lumbar spine demonstrates acute to subacute compression fracture L1 and L3, chronic T12 compression fracture and degenerative changes. CT scan of the cervical spine demonstrates degenerative changes without acute process. NEUROLOGIC: The patient is drowsy, but able to follow very simple commands. He was able to squeeze my hands when asked to do so. He is unable to speak. Cranial nerves II-XII appear grossly intact, the lower face is difficult to assess as he has a large left facial hematoma from a fall. He appeared able to move all four extremities equally, although he is generally weak. He was able to ophthalmic photographer both hands, but both telemarketing sales representative were weak. Plantar responses were extensor bilaterally. He could not perform lrmvoo-ep-veat. 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 The patient is not on any anticoagulation. Apparently, his aspirin was put on hold. However, he may be able to continue aspirin as he is going to need some type of antiplatelet therapy given his history and current diagnosis of atrial fibrillation. I do think Neurosurgery should be reconsulted and depending on the family's wishes, this type of stroke can continue to get larger in size, so I do think it is a good idea for Neurosurgery to be aware of this patient. I have put him back on aspirin 81 mg daily. He is going to need serial CT scans. I will also try to contact his lrimycnh-wc-epz and explain the situation. The patient will also need a chest x-ray to make sure that he has not aspirated given the episode of vomiting as he was being transported from [facility] back to his room. I thank you for your referral of this patient. <ELECTRONICALLY SIGNED> By: Emelyn Valdes DO 06/01/21 1118 [id number] Emelyn Valdes, /nt
--- NOTE | 2021-06-01 11:26 | NUR ---
RECEIVED CALL FROM PT'S NURSE (MORENO) THAT DR CONDE IS WANTING PT TO TRANSITION FROM COMFORT CARE TO HOSPICE. i, REACHED OUT TO PT'S SON MICHAEL AND HE SAID TO SPEAK WITH HIS SHE IS AT THE PT'S BEDSIDE SHE WAS HANDLING EVERYTHING. SPOKE WITH PT'S DIL AND SHE IS WANTING PT TO DO INPT HOSPICE AND IS IN AGREEMENT FOR REFERRAL TO BE FAXED TO [facility]. DCP FAXED REFERRAL TO [facility] SPOKE TO KAREN THE TRIAGE NURSE AND SHE WILL LET ME KNOW WHEN THEY ARE ABLE TO COME IN AND EVAL PT AT THE BEDSIDE TODAY. DCP TO FOLLOW/
--- NOTE | 2021-06-01 12:43 | EKG ---
[address] [address] ELECTROCARDIOGRAM REPORT Name: MARGARITO MARKS V Room #: 202 ADM IN M.R.#: [id number] Admission: 05/27/21 Attend Phys: Nnamdi Crespo MD Discharge: Date of : 31 Report #: [id number] [facility] Test Date: 2021-05-31 Test Time: 10:07:10 Pat Name: MARGARITO MARKS Department: Room: 202 P Gender: M Bereavement Coordinator: TAMARA : 1935 Requested By: Nnamdi Crespo Order Number: [id number] MD: William Baker Measurements Intervals [place] Rate: 92 P: DE: QRS: -9 QRSD: 86 T: 8 QT: 378 QTc: 468 Interpretive Statements Atrial fibrillation Anteroseptal infarct, age indeterminate Compared to ECG 05/31/2021 02:35:01 Myocardial infarct finding now present Poor R-wave progression no longer present Electronically Signed On 06-01-2021 12:42:59 SEC ACCOUNTANT by William Baker [email or web address] <ELECTRONICALLY SIGNED> By: William Baker MD 06/01/21 1242 1007 [id number] William Baker MD /DOROTHY
--- NOTE | 2021-06-01 18:13 | NUR ---
PT WAS PLACED ON COMFORT CARE TODAY. MEDS CHANGED SEE MAR. FAMILY AT BEDSIDE THROUGHOUT THE DAY. MOELLER IN PLACE. NO BM TODAY.
[2021-06-01 19:52] VITALS: BP 128/74
== END 2021-06-01 22:20 | disposition hospice, inpatient (51) | DRG 64 ==
LOC: ER 11:39 → EROBS 19:13 → 4S 19:13 → 2N 05-31 03:42
PROVIDERS: Nuclear Medicine Nuclear Cardiology; Nurse Practitioner Family; ADMIT Hospitalist; ATTEND Hospitalist
DX: I63.89 Other cerebral infarction (principal); J69.0 Pneumonitis due to inhalation of food and vomit; S32.010A Wedge compression fracture of first lumbar vertebra, initial encounter for closed fracture; I48.20 Chronic atrial fibrillation, unspecified; R26.9 Unspecified abnormalities of gait and mobility; R33.9 Retention of urine, unspecified; E11.9 Type 2 diabetes mellitus without complications; Z20.822 Contact with and (suspected) exposure to COVID-19; I10 Essential (primary) hypertension; Z96.652 Presence of left artificial knee joint; K21.9 Gastro-esophageal reflux disease without esophagitis; M81.0 Age-related osteoporosis without current pathological fracture; M43.8X6 Other specified deforming dorsopathies, lumbar region; I25.10 Atherosclerotic heart disease of native coronary artery without angina pectoris; R53.81 Other malaise; R63.4 Abnormal weight loss; E55.9 Vitamin D deficiency, unspecified; D64.9 Anemia, unspecified; I65.29 Occlusion and stenosis of unspecified carotid artery; Z60.2 Problems related to living alone; Z66 Do not resuscitate; Z95.5 Presence of coronary angioplasty implant and graft; Z88.8 Allergy status to other drugs, medicaments and biological substances; Z91.040 Latex allergy status; Z90.49 Acquired absence of other specified parts of digestive tract; Z83.3 Family history of diabetes mellitus; Z82.49 Family history of ischemic heart disease and other diseases of the circulatory system; Z79.01 Long term (current) use of anticoagulants; Z68.27 Body mass index [BMI] 27.0-27.9, adult; Z79.82 Long term (current) use of aspirin; Z79.899 Other long term (current) drug therapy; W18.39XA Other fall on same level, initial encounter; Y93.89 Activity, other specified; Y92.89 Other specified places as the place of occurrence of the external cause; Y99.8 Other external cause status
CPT/HCPCS: 10081; 10100

== ENCOUNTER 2021-06-01 22:10 | Inpatient (IN) | payer OTHER ==
[~2021-06-01 22:10] MED LIST changes: +NITROSTAT0.4 M1 SUBLING; +PROTONIX40 M4 PO; +XARELTO20 MG PO
[2021-06-02 08:08] VITALS: BP 151/89
--- NOTE | 2021-06-02 08:08 | NUR ---
PT PLACED ON IN PATIENT HOSPICE CARE 06/01. MORPHINE DRIP CONTINUES. FREQUENT OBSERVATION.
--- NOTE | 2021-06-02 17:10 | NUR ---
PT IS ON HOSPICE CARE WITH [facility] [phone], PT HAS MORPHINE DRIP AT RUNNING AT 2.5MG/HR. DAUGHTER IS COMFORTABLE WITH THAT RATE AND DOES NOT BELIEVE THE PATIENT IS IN ANY PAIN, DENYING THE NEED FOR ADDITIONAL PAIN CONTROL. DAUGHTER HAS ASKED TO STAY UP WITH THE ATIVAN PRN Q1H. HOSPICE NURSE GAVE THE DAUGHTER PERMISSION TO TITRATE DOWN THE PATIENTS OXYGEN.
[2021-06-02 20:56] VITALS: BP 130/65
--- NOTE | 2021-06-03 04:11 | NUR ---
RECEIVED PATIENT AT 1900H.ASSESSMENT DONE CHARTED.MEDS PER AUG.COMFORT MEASURES DONE THROUGHT THE SHIFT.
[2021-06-03 08:00] VITALS: BP 110/62
[2021-06-04 04:36] VITALS: BP 116/60
--- NOTE | 2021-06-04 04:37 | NUR ---
Pt is comfort care. No family at bedside. Morphine drip, unresponisive.
[2021-06-04 07:17] VITALS: BP 109/45
== END 2021-06-04 15:37 | DRG 64 ==
LOC: 2N 22:10
PROVIDERS: ADMIT Hospitalist; ATTEND Hospitalist
DX: I63.89 Other cerebral infarction (principal); J69.0 Pneumonitis due to inhalation of food and vomit; J96.01 Acute respiratory failure with hypoxia; I48.91 Unspecified atrial fibrillation; I10 Essential (primary) hypertension; E11.9 Type 2 diabetes mellitus without complications; R33.9 Retention of urine, unspecified; M43.8X6 Other specified deforming dorsopathies, lumbar region; D64.9 Anemia, unspecified; Z66 Do not resuscitate; M81.0 Age-related osteoporosis without current pathological fracture; I25.10 Atherosclerotic heart disease of native coronary artery without angina pectoris; Z96.652 Presence of left artificial knee joint; Z83.3 Family history of diabetes mellitus; Z82.49 Family history of ischemic heart disease and other diseases of the circulatory system; Z88.8 Allergy status to other drugs, medicaments and biological substances; Z79.01 Long term (current) use of anticoagulants; Z91.040 Latex allergy status; Z87.891 Personal history of nicotine dependence; Z95.5 Presence of coronary angioplasty implant and graft; Z51.5 Encounter for palliative care
CPT/HCPCS: 10081